=== PATIENT | female | born 1955 | race African-American/Black ===

== ENCOUNTER 2019-03-05 12:24 | Inpatient (IN) | payer BC ==
[~2019-03-05] VITALS: Ht 167.6 cm; Wt 95.7 kg
[~2019-03-05 12:24] MED LIST: AMOXICILLIN500 MG PO; CHOLESTEROL PILL; CLARITIN10 MG PO; CLONIDINE0.2 MG PO; DYRENIUM50 MG PO; IRON325 M1 PO; K-DUR 1010 MEQ PO; LISINOPRIL20 MG PO; PROTONIX40 MG PO; WATER PILL
[2019-03-05 12:40] VITALS: BP 200/98
--- NOTE | 2019-03-05 12:40 | NUR ---
A 63, admitted to , under the services of SASHA Hawkins DO with a diagnosis of HYPERTENSIVE EMERGENCY. Chief complaint is ELEVATED BP. Patient arrived via wheel chair from [place]. Monitor applied. Initial assessment completed. Vital signs taken and recorded. SASHA HAWKINS DO notified of admission to the unit. Orders received. See assessment for past medical history, medications and allergies. Patient and/or family oriented to unit. [address] visitation policy reviewed. Clothing/patient valuable form completed. SUDEEP TAYLOR
[2019-03-05] MEDS ORDERED: ONE DAILY WOME1 EAC2 PO (13:03)
[2019-03-05] MEDS ORDERED: HYDR25T PO (13:04)
[2019-03-05] MEDS ORDERED: METOPROLOL SUCC25 M2 PO (13:05)
[2019-03-05] MEDS ORDERED: BAYER ASPIRIN C81 MG PO (13:06)
[2019-03-05] MEDS ORDERED: POTASSIUM CHLO20 ME3 PO (13:07)
[2019-03-05] MEDS ORDERED: LOVASTATIN20 MG PO (13:09)
--- NOTE | 2019-03-05 13:54 | NUR ---
CALL PLACED TO DR. CARSON OFFICE, SPOKE WITH KALA, ADVISED OF CONSULT.
--- NOTE | 2019-03-05 14:19 | NUR ---
SPOKE WITH DR. MINOR, SHE ADVISED SHE SPOKE WITH DR WOODS, AND THAT HE DOESNT WANT US TO DECREASE BP.
[2019-03-05 15:30] VITALS: BP 172/103
[2019-03-05 16:00] VITALS: BP 154/82
[2019-03-05 19:09] LABS: ALBUMIN 3.2 gm/dl (3.1-4.5); ALKALINE PHOSPHATASE 47 U/L (45-117); BUN 14 mg/dl (7-24); CHLORIDE 103 mmol/L (98-107); CREATININE 0.83 mg/dL (0.55-1.02); POTASSIUM 2.7 mmol/L (3.5-5.1); SGOT/AST 16 IU/L (3-35); SGPT/ALT 30 U/L (12-78); SODIUM 140 mmol/L (136-145); TOTAL PROTEIN 8.3 gm/dL (6.4-8.2)
[2019-03-05 20:00] VITALS: BP 202/103
--- NOTE | 2019-03-05 20:23 | NUR ---
CALL PLACED TO HOSPITALIST LINE, PATIENTS BP 202/103, ADVISED GIVE BP MEDS NOW AND CONTINUE Q2H BP CHECKS WHILE AWAKE.
[2019-03-05 23:00] VITALS: BP 166/98
[2019-03-06] VITALS: BP 148/78
[2019-03-06 02:30] VITALS: BP 164/78
--- NOTE | 2019-03-06 02:30 | NUR ---
ANIMAL THERAPIST CALLED TO LET RN KNOW PT HAS LEADS OFF. LEADS REPLACED AND BP TAKEN AT THIS TIME. 164/74 PER AUTO BP CUFF. WILL MONITOR. NO NEEDS VOICED AT THIS TIME.
[2019-03-06 06:20] VITALS: BP 181/85
--- NOTE | 2019-03-06 06:31 | NUR ---
NOTIFIED OF BP 181/85 WITH HR IN 70S PER CM
[2019-03-06 06:57] LABS: BASO % 0.4 % (0.0-1.0); EOS # 0.2 10*3/uL (0.0-0.4); EOS % 2.4 % (1.0-4.0); HEMATOCRIT 34.8 % (37.0-47.0); HEMOGLOBIN 11.5 g/dl (12.0-16.0); LYMPH # 3.2 10*3/uL (1.3-4.4); LYMPH % 44.3 % (27.0-41.0); MEAN CELL VOLUME 91.3 fl (81.0-99.0); MEAN CORPUSCULAR HGB 30.2 pg (27.0-31.0); MEAN PLATELET VOLUME 9.7 fl (9.6-12.3); MONO # 0.4 10*3/uL (0.1-1.0); MONO % 6.1 % (3.0-9.0); NEUT # 3.3 10*3/uL (2.3-7.9); NEUT % 46.5 % (47.0-73.0); PLATELET COUNT AUTOMATED 327 10*3/uL (130-400); RED BLOOD COUNT 3.81 10*6/uL (4.10-5.10); RED CELL DISTRI WIDTH 14.9 % (0-14.5); WHITE BLOOD COUNT 7.2 10*3/uL (4.8-10.8)
[2019-03-06 07:23] LABS: ALBUMIN 3.1 gm/dl (3.1-4.5); BUN 15 mg/dl (7-24); CHLORIDE 102 mmol/L (98-107); POTASSIUM 2.9 mmol/L (3.5-5.1); SODIUM 139 mmol/L (136-145)
[2019-03-06 07:26] LABS: ALKALINE PHOSPHATASE 47 U/L (45-117); CREATININE 0.72 mg/dL (0.55-1.02); PHOSPHOROUS 3.6 mg/dL (2.5-4.9); SGOT/AST 17 IU/L (3-35); SGPT/ALT 30 U/L (12-78); TOTAL PROTEIN 8.2 gm/dL (6.4-8.2)
[2019-03-06 08:00] VITALS: BP 164/78
--- NOTE | 2019-03-06 08:00 | NUR ---
PT RESTING IN BED.;, NO DISTRESS NOTED. WILL MONITOR
--- NOTE | 2019-03-06 08:38 | NUR ---
DR SWENSON HERE AND AWARE OF WOUND RECOMMENDATIONS
--- NOTE | 2019-03-06 09:00 | NUR ---
[facility] Supervisor in to talk to patient. Patient states lives at home with family. There are few steps in the home. Physician: jovita cardoso [facility]: [facility]: none Patient's level of ADLs: INDEPENDENT Patient has working utilities: all working DME: none Follow-up physician's appointment after d/c: will be made by hospitalist nurse director upon discharge Does patient want to access PORTAL?: no Discharge plan discussed with patient she lives at home, is independent in adls and ambulation,, works, drives, she states he will be returning home when able and denies any home needs. ROSA MARIA PINZON
[2019-03-06 12:00] VITALS: BP 160/70
[2019-03-06] MEDS ORDERED: ALDACTONE25 MG PO (13:38)
--- NOTE | 2019-03-06 14:31 | NUR ---
Discharge instructions reviewed with patient/family. Patient receptive and verbalizes understanding. Follow-up care arranged. Written instructions given to patient/family. TONIE FLORES
[2019-03-09 10:06] LABS: NORMETANEPHRINE, PLASMA 65 pg/mL (0-145)
[2019-03-09 16:06] LABS: RENIN ACTIVITY (PLASMA) <0.167 ng/mL/hr (0.167-5.380)
[2019-03-11 07:38] LABS: METANEPHRINE, PLASMA 19 pg/mL (0-62)
[2019-03-13 08:06] LABS: ALDOSTERONE/RENIN RATIO >52.1 (0.0-30.0)
== END 2019-03-06 14:31 | disposition home or self-care (01) | DRG 305 ==
LOC: 4E 12:24
PROVIDERS: Student in an Organized Health Care Education/Training Program; ADMIT Internal Medicine
DX: I16.0 Hypertensive urgency (principal); E44.0 Moderate protein-calorie malnutrition; I10 Essential (primary) hypertension; E78.5 Hyperlipidemia, unspecified; K21.9 Gastro-esophageal reflux disease without esophagitis; E11.65 Type 2 diabetes mellitus with hyperglycemia; D64.9 Anemia, unspecified; E87.6 Hypokalemia; R00.1 Bradycardia, unspecified; Z90.49 Acquired absence of other specified parts of digestive tract; Z90.710 Acquired absence of both cervix and uterus; Z98.891 History of uterine scar from previous surgery; Z83.3 Family history of diabetes mellitus; Z82.49 Family history of ischemic heart disease and other diseases of the circulatory system; Z84.1 Family history of disorders of kidney and ureter; Z91.040 Latex allergy status; Z79.82 Long term (current) use of aspirin; Z79.899 Other long term (current) drug therapy; Z68.34 Body mass index [BMI] 34.0-34.9, adult

== ENCOUNTER 2020-12-18 16:22 | Emergency (ER) | payer BC ==
[~2020-12-18] VITALS: Ht 167.6 cm; Wt 86.2 kg
[~2020-12-18 16:22] MED LIST changes: +ALDACTONE25 MG PO; +BAYER ASPIRIN C81 MG PO; +HYDR25T PO; +LOVASTATIN20 MG PO; +METOPROLOL SUCC25 M2 PO; +ONE DAILY WOME1 EAC2 PO; +POTASSIUM CHLO20 ME3 PO
[2020-12-18] MEDS ORDERED: NORVASC5 MG PO (18:20)
[2020-12-18 19:02] VITALS: BP 174/88
== END 2020-12-18 19:02 | disposition home or self-care (01) ==
LOC: ED 16:22
DX: I16.0 Hypertensive urgency (principal); Z91.040 Latex allergy status; Z79.899 Other long term (current) drug therapy; Z79.82 Long term (current) use of aspirin; Z90.49 Acquired absence of other specified parts of digestive tract; Z98.890 Other specified postprocedural states; Z90.711 Acquired absence of uterus with remaining cervical stump

== ENCOUNTER → 2022-07-01 | Outpatient (CLI) | payer OTHER ==
[~2022-07-01] MED LIST changes: +NORVASC5 MG PO
[2022-07-01 11:12] LABS: BASO % 0.4 % (0.0-1.0); EOS # 0.1 10*3/uL (0.0-0.4); EOS % 2.5 % (1.0-4.0); HEMATOCRIT 35.1 % (37.0-47.0); LYMPH # 2.1 10*3/uL (1.3-4.4); LYMPH % 43.7 % (27.0-41.0); MEAN CELL VOLUME 93.6 fl (81.0-99.0); MEAN CORPUSCULAR HGB 29.3 pg (27.0-31.0); MEAN CORPUSCULAR HGB CONC 31.3 g/dl (33.0-37.0); MEAN PLATELET VOLUME 9.9 fl (9.6-12.3); MONO # 0.4 10*3/uL (0.1-1.0); MONO % 7.8 % (3.0-9.0); NEUT # 2.2 10*3/uL (2.3-7.9); NEUT % 45.4 % (47.0-73.0); PLATELET COUNT AUTOMATED 291 10*3/uL (130-400); RED BLOOD COUNT 3.75 10*6/uL (4.10-5.10); RED CELL DISTRI WIDTH 14.4 % (0-14.5); WHITE BLOOD COUNT 4.7 10*3/uL (4.8-10.8)
[2022-07-01 11:29] LABS: ALKALINE PHOSPHATASE 42 U/L (46-116); BUN 12 mg/dl (9-23); CHLORIDE 100 mmol/L (98-107); CHOLESTEROL 200 mg/dL (<200); LDL CHOLESTEROL 130 mg/dL (9-159); POTASSIUM 3.8 mmol/L (3.4-5.1); SGPT/ALT 20 U/L (10-49); TOTAL PROTEIN 7.6 gm/dL (6.0-8.0); TRIGLYCERIDES 127 mg/dl (<150)
[2022-07-01 12:06] LABS: VITAMIN D, 25-HYDROXY 45.7 ng/mL (30-100)
[2022-07-02 10:07] LABS: CREATININE,URINE 16.5 mg/dL (Not Estab.)
== END | disposition home or self-care (01) ==
LOC: LAB 10:04
PROVIDERS: ATTEND Student in an Organized Health Care Education/Training Program
DX: E78.00 Pure hypercholesterolemia, unspecified (principal); E55.9 Vitamin D deficiency, unspecified; I10 Essential (primary) hypertension; R79.89 Other specified abnormal findings of blood chemistry; R80.9 Proteinuria, unspecified

== ENCOUNTER 2022-07-08 19:10 | Emergency (ER) | payer OTHER ==
[~2022-07-08] VITALS: Wt 90.3 kg
[2022-07-08 19:57] LABS: BASO % 0.3 % (0.0-1.0); EOS # 0.1 10*3/uL (0.0-0.4); HEMATOCRIT 37.7 % (37.0-47.0); LYMPH # 3.6 10*3/uL (1.3-4.4); LYMPH % 52.5 % (27.0-41.0); MEAN CELL VOLUME 91.5 fl (81.0-99.0); MEAN CORPUSCULAR HGB 30.1 pg (27.0-31.0); MEAN CORPUSCULAR HGB CONC 32.9 g/dl (33.0-37.0); MEAN PLATELET VOLUME 9.8 fl (9.6-12.3); MONO # 0.5 10*3/uL (0.1-1.0); MONO % 6.7 % (3.0-9.0); NEUT # 2.7 10*3/uL (2.3-7.9); NEUT % 38.4 % (47.0-73.0); PLATELET COUNT AUTOMATED 347 10*3/uL (130-400); RED BLOOD COUNT 4.12 10*6/uL (4.10-5.10); WHITE BLOOD COUNT 6.9 10*3/uL (4.8-10.8)
[2022-07-08 20:13] LABS: ALKALINE PHOSPHATASE 51 U/L (46-116); BUN 13 mg/dl (9-23); CHLORIDE 98 mmol/L (98-107); POTASSIUM 3.2 mmol/L (3.4-5.1); SGPT/ALT 24 U/L (10-49); TOTAL PROTEIN 8.3 gm/dL (6.0-8.0)
[2022-07-08 20:22] VITALS: BP 181/88
[2022-07-08] MEDS ORDERED: CLONIDINE1 EAC2 T (20:58)
== END 2022-07-08 21:45 | disposition home or self-care (01) ==
LOC: ED 19:10
PROVIDERS: Emergency Medicine
DX: I10 Essential (primary) hypertension (principal); E11.9 Type 2 diabetes mellitus without complications; Z90.49 Acquired absence of other specified parts of digestive tract; Z90.710 Acquired absence of both cervix and uterus; Z98.890 Other specified postprocedural states; Z79.899 Other long term (current) drug therapy; Z79.82 Long term (current) use of aspirin; Z91.040 Latex allergy status

== ENCOUNTER → 2022-08-04 | Outpatient (CLI) | payer OTHER ==
[~2022-08-04] MED LIST changes: +CLONIDINE1 EAC2 T
== END | disposition home or self-care (01) ==
LOC: US 08:30
PROVIDERS: ATTEND Family Medicine
DX: R80.9 Proteinuria, unspecified (principal); I10 Essential (primary) hypertension; E11.9 Type 2 diabetes mellitus without complications

== ENCOUNTER → 2022-08-19 | Outpatient (CLI) | payer OTHER | END | disposition home or self-care (01) | LOC: CARD 00:04 | PROVIDERS: ATTEND Internal Medicine Cardiovascular Disease | DX: R94.31 Abnormal electrocardiogram [ECG] [EKG] (principal); I10 Essential (primary) hypertension; R73.03 Prediabetes ==

== ENCOUNTER → 2022-11-30 | Outpatient (CLI) | payer OTHER | END | disposition home or self-care (01) | LOC: CT 01:28 | PROVIDERS: ATTEND Family Medicine | DX: E26.09 Other primary hyperaldosteronism (principal) ==